=== PATIENT | male | born 1975 | race Hispanic/Latino ===

== ENCOUNTER 2022-08-21 13:19 | Emergency (ER) | payer BC | END 2022-08-21 14:35 | disposition home or self-care (01) | LOC: ERS 13:19 | DX: B37.42 Candidal balanitis (principal); E11.9 Type 2 diabetes mellitus without complications | CPT/HCPCS: 99283 ==

== ENCOUNTER 2022-11-16 21:46 | Emergency (ER) | payer BC | END 2022-11-17 03:08 | disposition home or self-care (01) | LOC: ERS 21:46 | DX: L60.0 Ingrowing nail (principal); E11.9 Type 2 diabetes mellitus without complications | CPT/HCPCS: 99283 ==

== ENCOUNTER 2023-02-13 10:59 | Emergency (ER) | payer BC ==
[2023-02-13 12:45] LABS: Bilirubin Negative (Negative); Blood, Urine Negative (Negative); Clarity Clear (Clear); Glucose, Urine (Dipstick) Normal (Negative); Ketone, Urine Negative (Negative); Leukocyte Negative Leu/uL (Negative); Nitrite Negative (Negative); Protein, Urine (Dipstick) Negative (Neg-Trace); Specific Gravity, Urine 1.009 (1.002-1.036); Urobilinogen Normal mg/dL (Less than 2)
== END 2023-02-13 14:10 | disposition home or self-care (01) ==
LOC: ERS 10:59
DX: Z00.00 Encounter for general adult medical examination without abnormal findings (principal); E11.9 Type 2 diabetes mellitus without complications; Z79.84 Long term (current) use of oral hypoglycemic drugs
CPT/HCPCS: 81003; 99283